=== PATIENT | male | born 1995 | race Caucasian/White ===

== ENCOUNTER 2024-05-27 23:40 | Emergency (ER) | payer MEDICAID, SELFPAY ==
[2024-05-27 23:40] VITALS: BMI 39.9
[2024-05-28 00:06] VITALS: BP 150/88; PULSE 88; RESP 20; TEMP 36.9; O2SAT 95
--- NOTE | 2024-05-28 04:48 | EDNOTE_ITS ---
ED Dizzyness RME/HPI General Chief Complaint: Dizziness Stated Complaint: EPISODE OF FEELING DIZZY 30 MINUTES AGO Time Seen by Provider: 05/28/24 00:42 Arrival date/time: 05/27/24 23:40 29M with history of anxiety, depression, and panic attacks presents to ED with 5 minutes of heart palps, dizziness, and sweating about 30 minutes ago. Patient dose of Zoloft was recently lowered. Patient no longer has symptoms. Limitations: no limitations Related Data Previous Rx's ?Medication ?Instructions ?Recorded cephalexin 500 mg capsule 500 mg PO Q12H #20 caps 07/21 doxycycline hyclate 100 mg capsule 100 mg PO BID #14 c aps 10/04/21 amoxicillin 875 mg-potassium 1 tab PO BID #14 tabs 12/22 clavulanate 125 mg tablet fexofenadine 60 mg-pseudoephedrine 1 tab PO Q12H PRN n arthur congestion 03/11/22 ER 120 mg tablet,ext.release,12 hr #20 tabs (Laurie-D 12 Hour) Allergies Allergy/AdvReac Type Severity Reaction Status Date / Time No Known Allergies Allergy Verified 04/16/23 18:41 Review of Systems Review of Systems Systems Reviewed: All systems reviewed, normal except as documented Constitutional Constitutional: Reports system reviewed and no additional complaints, except as documented, Denies fever(s) and Denies headache(s) ENT Ears, Nose, Mouth, and Throat: Reports as per HPI, Denies disequilibrium, Denies headache(s) and Reports vertigo Cardiovascular Cardiovascular: Reports system reviewed and no additional complaints, except as documented, Reports as per HPI, Denies chest pain, Reports diaphoresis, Denies dyspnea and Reports palpitations Respiratory Respiratory: Reports system reviewed and no additional complaints, except as documented, Denies cough and Denies dyspnea Gastrointestinal Gastrointestinal: Reports system reviewed and no additional complaints, except as documented, Denies abdominal pain, Denies nausea and Denies vomiting Neurologic Neurologic: Reports system reviewed and no additional complaints, except as documented, Denies confusion, Denies disequilibrium, Denies headache(s) and Reports vertigo Psychiatric Psychiatric: Denies confusion Endocrine Endocrine: Reports palpitations Past Medical History Social History SMOKING STATUS: Never smoker ED Exam General Limitations: Present no limitations General appearance: Present alert and in no apparent distress Head Head exam: Present atraumatic Eye Eye exam: Present normal appearance, PERRL and EOMI ENT ENT exam: Present normal exam, normal oropharynx and mucous membranes moist Neck Neck exam: Present normal inspection, full ROM and trachea midline Chest Chest inspection: Present normal inspection and symmetric chest wall rise Respiratory Respiratory exam: Present normal lung sounds bilaterally Cardiovascular Cardiovascular exam: Present regular rate, normal rhythm and normal heart sounds Abdominal Exam Abdominal exam: Present soft and normal bowel sounds Extremities Exam Extremities exam: Present normal inspection and full ROM Back Exam Back exam: Present normal inspection and full ROM Neurological Exam Neurological exam: Present alert, oriented X3 and CN II-XII intact Psychiatric Psychiatric exam: Present normal affect and normal mood Skin Skin exam: Present warm, dry, intact and normal color Course Quality Measures none Orders Category Date Time Status EKG (ED ONLY) *Do not use* NOW Care 05/27/24 23:48 Completed EKG (ED Only) Stat Exams 05/27/24 23:48 Ordered Vital Signs Vital signs: Vital Signs Temperature 98.4 F 05/28/24 00:06 Pulse Rate 88 05/28/24 00:06 Respiratory Rate 20 05/28/24 00:06 Blood Pressure 150/88 H 05/28/24 00:06 Pulse Oximetry (%) 95 05/28/24 00:06 Oxygen Delivery Method Room Air 05/28/24 00:06 O2 at 95% on RA and WNLs Dizziness MDM Narrative MDM Narrative:: 29M with history of anxiety, depression, and panic attacks presents to ED with 5 minutes of heart palps, dizziness, and sweating about 30 minutes ago. Patient dose of Zoloft was recently lowered. Patient no longer has symptoms. Physical exam reveals clear lungs. Normal pupil response and EOM. RRR. Patient is afebrile, calm, and alert. EKG is NSR. 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 Patient data External records reviewed:: [facility] previous records Clinical information provided by:: patient Social determinants that could affect healthcare access:: mental health Patient has the following chronic illnesses:: anxiety, depression, and panic attacks How is presenting disease/condition affected by chronic disease/condition?: caused by Evaluation data The following diagnostics were reviewed and interpreted by me:: EKG tracing(s) Lab and/or radiology exams considered but not ordered:: ordered Interpretation Summary: above Medications / Prescriptions Medications or Prescriptions considered but not ordered:: not ordered Medication administrations:: n/a Consultations Consultation(s) initiated? (list below): No Diagnosis Dizziness Differential Diagnosis: adverse reaction to drug, benign paroxysmal positional vertigo, orthostatic hypotension, vertebral basilar insufficiency, cerebrovascular accident, acute vestibular neuronitis, transient cerebral ischemia and other (panic disorder) Most likely diagnosis given after review of the tests above:: panic disorder Admission Indicated Admission indicated?: not indicated Admission Request Was there a request for admission?: No Disposition Plan Disposition Plan: Discharge Discharge Attestation Discharge Attestation: The patient and all family members were given an opportunity to ask questions and understood the discharge instructions. Discharge instructions specifically effects, indications for sooner follow up or return to the emergency department, and the expected course of current diagnosis. Patient condition: Stable Discharge Plan Plan Patient Disposition: HOME (Self Care) Disposition Comment: Stable Prescriptions/Referrals Prescriptions/Med Rec: No Action doxycycline hyclate 100 mg capsule 100 mg PO BID Qty: 14 0RF cephalexin 500 mg capsule 500 mg PO Q12H Qty: 20 0RF amoxicillin-pot clavulanate 875-125 mg tablet 1 tab PO BID Qty: 14 0RF fexofenadine-pseudoephedrine [Laurie-D 12 Hour] 60-120 mg tablet extended release 12 hr 1 tab PO Q12H PRN (Reason: nasal congestion) Qty: 20 0RF Problem List Clinical Impression: Panic disorder Patient/Caregiver Discharge Instructions Education Materials: Panic Disorder Tx, Treating Panic Disorder with ..., ED Panic Attack Additional Instructions: Please follow-up with PCP within 24-48 hours and return immediately if symptoms worsen. Ask psychiatrist if you need to go back to original dose or change SSRI. Print Language: Sami Stand Alone Forms: Patient Portal Info Letter AISHWARYA/JAZLYN Supervising Physician AISHWARYA/JAZLYN Supervising Physician: Dr. Maravilla
== END 2024-05-28 01:35 | disposition home or self-care (01) ==
LOC: SERX 05-28 01:50
PROVIDERS: Emergency Provider Emergency Medicine; PCP Family Medicine
DX: F41.0 Panic disorder [episodic paroxysmal anxiety] (principal)
CPT/HCPCS: 93005; 99283

== ENCOUNTER 2024-07-19 01:01 | Observation (INO) | payer MEDICAID, SELFPAY ==
[2024-07-19] VITALS (12 sets, daily range): BP systolic 103–138; BP diastolic 69–92; PULSE 96–128; RESP 18–22; TEMP 36.6–39.4; O2SAT 95–97; BMI 39.5; BMI 39.1
--- NOTE | 2024-07-19 01:32 | XR_ITS ---
Examination: PA chest single view TECHNIQUE: Upright PA chest single view Date and time: July 19, 2024 0147 hours INDICATIONS: Fever abdominal pain diarrhea beginning yesterday FINDINGS: Normal heart size. No pneumonia or pulmonary edema The osseous structures are intact IMPRESSION: No active disease.
--- NOTE | 2024-07-19 01:32 | EKG_ITS ---
[facility] Test Date: 2024-07-19 Pat Name: DIMAS BEARDEN Department: Room: - Gender: Male Home Care Liaison: : 1995 Requested By: Artie Noble Order Number: [id number] Reading MD: Artie Noble Measurements Intervals [place] Rate: 122 P: 57 CO: 150 QRS: 64 QRSD: 100 T: 13 QT: 290 QTc: 413 Interpretive Statements SINUS TACHYCARDIA ABNORMAL RHYTHM ECG Compared to ECG 05/28/2024 00:07:38 Sinus rhythm no longer present Incomplete right bundle-branch block no longer present /store/S0/[id number]/ecg/[id number].pdf
--- NOTE | 2024-07-19 01:39 | PD.EDRME ---
Rapid Medical Screening Exam [facility] Arrival date/time: 07/19/24 01:01 Chief Complaint: Fever Vital signs: Vital Signs Temperature 101.4 F H 07/19/24 01:24 Pulse Rate 128 H 07/19/24 01:24 Respiratory Rate 20 07/19/24 01:24 Blood Pressure 121/78 07/19/24 01:24 Pulse Oximetry (%) 95 07/19/24 01:24 Oxygen Delivery Method Room Air 07/19/24 01:24 [facility] Narrative: Fever, abdominal pain, diarrhea since yesterday
[2024-07-19] MEDS: IBUPROFEN TAB 400 MG TABLET 800 MG PO (01:58)
[2024-07-19 02:02] LABS: Lactate (Lactic Acid) 1.3 mMol/L (0.4-2.0)
[2024-07-19 02:07] LABS: Basophils % (Auto) 0 % (0-2.5); Eosinophils % (Auto) 1 % (0-10); Hematocrit 41.8 % (41.0-53.0); Hemoglobin 14.9 g/dL (13.5-16.0); Immature Granulocytes % (Auto) 0 % (0-0); Immature Granulocytes Auto 0.03 Thou/mm3 (0.00-0.00); Lymphocytes # (Auto) 0.7 Thou/mm3 (1.0-4.8); Lymphocytes % (Auto) 7 % (10-50); Mean Corpuscular HGB Conc 35.6 g/dl (31.0-37.0); Mean Corpuscular Hemoglobin 29.1 pg (25.0-35.0); Mean Corpuscular Volume 82 fL (80-100); Monocytes # (Auto) 0.6 Thou/mm3 (0.0-0.8); Monocytes % (Auto) 7 % (0-12); Neutrophils # (Auto) 7.5 Thou/mm3 (1.8-7.7); Neutrophils % (Auto) 85 % (37-80); Nucleated Red Blood Cell % 0 /100 WBC (0); Platelet Count 281 Thou/mm3 (140-440); RDW Standard Deviation 38.1 fL (35.1-43.9); Red Blood Count 5.12 Miln/mm3 (4.50-5.90); White Blood Count 8.9 Thou/mm3 (3.8-10.6)
--- NOTE | 2024-07-19 02:18 | XR_ITS ---
Examination: CT abdomen with intravenous contrast CT pelvis with intravenous contrast 2-D coronal reconstructions 2-D sagittal reconstructions Date and time of exam:July 19, 2024 0346 hours INDICATIONS: Fever abdominal pain and body aches today. CTDI: vol (mGy) 14 DLP: (mGycm) 955 Technique: Multiple axial sections of the abdomen and pelvis have been obtained. 64 slice high-resolution scanner used. 3 mm axial sections have been obtained, post intravenous injection 60 cc Isovue 370 2-D sagittal, coronal reconstructions obtained. Low dose protocols were performed. One or more of the following dose reduction techniques were used; automated exposure control, adjustment of the mA and/or KV according to patient size, use of iterative reconstruction technique. Findings: No focal liver or splenic lesions No gallstones No pancreatic or adrenal mass No renal or ureteral calculi, no hydronephrosis No periappendiceal inflammatory change Small focus of fat inflammation adjacent to the descending colon Mild thickening of the urinary bladder wall No prostatomegaly Osseous structures intact IMPRESSION: Epiploic appendagitis adjacent to the descending colon
[2024-07-19 02:31] LABS: Alanine Aminotransferase 34 U/L (10-49); Albumin, Serum 4.8 gm/dL (3.5-5.0); Albumin/Globulin Ratio 1.5 (1.2-2.2); Alkaline Phosphatase 156 U/L (46-116); Anion Gap 9 (7-16); Aspartate Amino Transferase 26 U/L (0-34); BUN/Creatinine Ratio 9 Ratio (12-20); Bilirubin,Total 0.4 mg/dL (0.3-1.2); Blood Urea Nitrogen 10 mg/dL (9-23); Carbon Dioxide 24.4 mMol/L (20.0-31.0); Chloride 106 mMol/L (98-107); Creatinine (Component) 1.1 mg/dL (0.6-1.3); Estimated Creatinine Clearance 129.9 mL/min (>60); Globulin 3.1 gm/dL (2.3-3.5); Glucose 121 mg/dL (74-106); Lipase 43 U/L (12-53); Osmolality,Calculated 277 (275-295); Potassium 4.1 mMol/L (3.4-5.1); Sodium 139 mMol/L (136-145); Total Protein 7.9 gm/dL (5.7-8.2); eGFR > 60 See Note
[2024-07-19] MEDS: SODIUM CHLORIDE 0.9% 1000 ML 2,121 ML 2121 ML IV (02:42)
[2024-07-19 02:51] LABS: Amorphous Crystals,Urine Present (Absent); Bilirubin,Urine Negative (Negative); Blood,Urine 1+ (Negative); Clarity,Urine Turbid (Clear/Hazy); Collection Type, Urine Clean Catch; Color,Urine Yellow (Lt Yel-Yel); Glucose, Urine Negative (Negative); Ketones,Urine Trace (Negative); Leukocyte Esterase,Urine Positive (Negative); Nitrite,Urine Negative (Negative); Protein,Urine Trace (Neg - Trace); RBC,Urine 6 /hpf (0-3); Specific Gravity,Urine 1.033 (1.001-1.035); Squamous Epithelial Cell,Urine < 1 /hpf (0-5); WBC,Urine 2 /hpf (0-5)
[2024-07-19] MEDS: cefTRIAXone/D5w 1gm IV premix 1 GM/50 ML BAG IV (04:16)
--- NOTE | 2024-07-19 04:51 | PRELIM_ITS ---
CT scan of the abdomen and pelvis with intravenous contrast (axial sections with sagittal and coronal reformats) July 19, 2024 at 0346 hours Clinical History: Fever, abdominal pain. Comparison: No prior study is available for comparison. Findings: The lung bases are clear. The liver, gallbladder, pancreas, spleen, kidneys and adrenals are unremarkable. No evidence of bowel obstruction. No evidence of appendicitis. There is no mesenteric or retroperitoneal adenopathy. Mild thickening of the anterior urinary bladder wall. There is no free fluid or free air. The osseous structures are unremarkable. Mild thickening of the colonic wall. Fluid stools throughout the colon. Fat stranding anterior to the distal descending colon. Impression: Possible mild colitis. Epiploic appendagitis anterior to the distal descending colon. Mild thickening of the anterior urinary bladder wall, further evaluation to exclude urinary bladder cancer should be considered. Report Electronically Signed By: Memo Farmer 07/19/2024 4:50:48 AM [EST]
--- NOTE | 2024-07-19 06:24 | PD.EDADULT ---
ED General RME/HPI General Chief complaint: Fever Stated complaint: FEVER,BODYACHES Time Seen by Provider: 07/19/24 02:30 Arrival date/time: 07/19/24 01:01 RME / HPI RME / HPI narrative: This patient is a 29-year-old male with past medical history of anxiety presented to the ED on 07/19/2024 with chief complaint of fever, loose stools and abdominal pain for last 2 days. He reported that his pain started 2 days ago when he noticed that he has pain diffusely in the abdomen more on the right and left anterior part of the abdomen associated with nausea and loose stools. Patient reported more than 5 bowel movements in a day from last 2 days without noticing any blood and endorsed orange color stool. He also reported to have some burning and urgency during urination for last 2 days. He described his pain as colicky in nature 9 out of 10 more exacerbated with movement and only used to subside temporarily with Tylenol and ibuprofen which she was taking at home. He also has midepigastric pain colicky in nature associate with nausea and feels bloated. His fever was not breaking down at home despite taking Tylenol and ibuprofen and spiked to 101. He also endorsed lightheadedness and dizziness. Patient does have a significant family history of colon cancer and he himself had colonoscopy done in the past which showed hemorrhoids. He also has been passing a lot of flatus along with stool. He usually eats outside the home but last meal since his pain and symptoms started was at home cooked by his . He lives at home with his and does not work currently. Past medical history: Above PSH: Colonoscopy in the past showing hemorrhoids SH: Used to smoke weed in the past. Denies drinking alcohol. No history of illicit drug use FH: Colon cancer in father and grandfather Allergies: No known drug allergies Home medications: Prozac Differential diagnoses include sepsis likely related to viral GI infection, IBD, pancreatitis, peptic ulcer disease Vitals showed blood pressure 113/69 with tachycardia 128 and febrile 41.4 saturating well on room air. Patient met 2 out of 4 SIRS criteria and sepsis alert was initiated. Labs reviewed white count 8.9, hemoglobin 14.9, platelet count 281. Chemistry panel was unremarkable. Blood glucose 121. Lactic acid 1.3. Liver enzymes unremarkable. Lipase was negative. Procalcitonin 0.20. Urine was showing turbidity with blood 1+, RBC 6 + and amorphous crystals present. Chest x-ray showed no active disease. EKG showed sinus tachycardia with no acute ST-T changes. CT abdomen was significant for colitis pattern with thickening of colon wall and bladder wall. Epiploic appendagitis anterior to distal descending colon. Patient received IV Rocephin 1 g x 1, 2 L bolus of NS x 1 and ibuprofen 800 mg in the ED. Rectal examination was performed which showed negative guaiac test x 2. GI specialist, Dr. Hester was consulted who recommended if the patient is willing to stay he would need another colonoscopy to rule out inflammatory conditions of bowel and will need further workup and inpatient IV antibiotic with ciprofloxacin 400 mg every 12 hourly and Flagyl 500 mg Q8 hourly and would need colonoscopy. He was also started on IV hydration with normal saline at 75 cc/h. Patient was explained that he would need to be admitted for further evaluation and patient was agreeable to be further investigated. 7:43 Discussed case with hospitalist team regarding admission. Discussed patient's ED course, exam findings, labs and radiology results. Hospitalist team agreed to accept the patient for admission. MD complaint: Diffuse abdominal pain with loose stools and fever Onset (ago): day(s) (2) Location: back and abdomen Radiation: non-radiation Severity: severe Quality: aching Consistency: intermittent Relieving factors: none Exacerbating factors: movement Associated symptoms: fever/chills, malaise, nausea/vomiting and shortness of breath Related Data Home Medications ?Medication ?Instructions ?Recorded ?Confirmed fluoxetine 10 mg tablet 20 mg PO DAILY 07/19/24 07/19/24 Previous Rx's ?Medication ?Instructions ?Recorded cephalexin 500 mg capsule 500 mg PO Q12H #20 caps 10/04/21 Held on 07/19/24. Instructions: Order Change doxycycline hyclate 100 mg capsule 100 mg PO BID #14 caps 10/04/21 Held on 07/19/24. Instructions: Order Change amoxicillin 875 mg-potassium 1 tab PO BID #14 tabs 03/11/22 clavulanate 125 mg tablet Held on 07/19/24. Instructions: Order Change Allergies Allergy/AdvReac Type Severity Reaction Status Date / Time No Known Allergies Allergy Verified 07/19/24 01:03 Review of Systems Review of Systems Systems Reviewed: All systems reviewed, normal except as documented Past Medical History Past Medical History PSYCHO/SOCIAL: Positive Anxiety ED Exam Narrative Physical exam: GENERAL APPEARANCE: AxOx4, generally well-appearing male in mild distress due to pain. sat well on RA HEENT: NC, AT. dry mucus membrane . EOMI, clear conjunctiva, oropharynx clear. NECK: Supple without lymphadenopathy. No stiffness or restricted ROM. HEART: sinus tacy with regular rhythm, normal S1/S2, no m/r/g LUNGS: CTAB, moving air well. No crackles or wheezes are heard. ABDOMEN: Soft,Epigastric tender and Rt flank tenderness, mildly distended with hyperactive bowel sounds heard. BACK: Rt flank tenderness EXTREMITIES: Without cyanosis, clubbing or edema. NEUROLOGICAL: Grossly nonfocal. Alert and oriented, moving all 4 extremities. CN not formally tested but appear grossly intact. Observed to ambulate with normal gait. Skin: Warm and dry without any rash. Psych: appropriate mood and affect Course Course Course Narrative: This patient is a 29-year-old male with past medical history of anxiety presented to the ED on 07/19/2024 with chief complaint of fever and abdominal pain for last 2 days. He reported that his pain started 2 days ago when he noticed that he has pain diffusely in the abdomen more on the right and left anterior part of the abdomen associated with nausea and loose stools. Patient reported more than 5 bowel movements in a day from last 2 days without noticing any blood and endorsed orange color stool. He also reported to have some burning and urgency during urination for last 2 days. He described his pain as colicky in nature 9 out of 10 more exacerbated with movement and only used to subside temporarily with Tylenol and ibuprofen which she was taking at home. He also has midepigastric pain colicky in nature associate with nausea and feels bloated. His fever was not breaking down at home despite taking Tylenol and ibuprofen and spiked to 101. He also endorsed lightheadedness and dizziness. Patient does have a significant family history of colon cancer and he himself had colonoscopy done in the past which showed hemorrhoids. He also has been passing a lot of flatus along with stool. He usually eats outside the home but last meal since his pain and symptoms started was at home cooked by his . He lives at home with his and does not work currently. Differential diagnoses include sepsis likely related to viral GI infection, IBD, pancreatitis, peptic ulcer disease Vitals showed blood pressure 113/69 with tachycardia 128 and febrile 41.4 saturating well on room air. Patient met 2 out of 4 SIRS criteria and sepsis alert was initiated. Labs reviewed white count 8.9, hemoglobin 14.9, platelet count 281. Chemistry panel was unremarkable. Blood glucose 121. Lactic acid 1.3. Liver enzymes unremarkable. Lipase was negative. Procalcitonin 0.20. Urine was showing turbidity with blood 1+, RBC 6 + and amorphous crystals present. Chest x-ray showed no active disease. EKG showed sinus tachycardia with no acute ST-T changes. CT abdomen was significant for colitis pattern with thickening of colon wall and bladder wall. Epiploic appendagitis anterior to distal descending colon. Patient received IV Rocephin 1 g x 1, 2 L bolus of NS x 1 and ibuprofen 800 mg in the ED. Rectal examination was performed which showed negative guaiac test x 2. GI specialist, Dr. Hester was consulted who recommended if the patient is willing to stay he would need another colonoscopy to rule out inflammatory conditions of bowel and will need further workup and inpatient IV antibiotic with ciprofloxacin 400 mg every 12 hourly and Flagyl 500 mg Q8 hourly and would need colonoscopy. He was also started on IV hydration with normal saline at 75 cc/h. Patient was explained that he would need to be admitted for further evaluation and patient was agreeable to be further investigated. 7:43 Discussed case with hospitalist team regarding admission. Discussed patient's ED course, exam findings, labs and radiology results. Hospitalist team agreed to accept the patient for admission. Quality Measures none Orders Category Date Time Status Patient Condition Routine Admission 07/19/24 08:[address] in Observation Status Routine Admission 07/19/24 08:13 Active Bedside COVID-19 Antigen Test NOW Care 07/19/24 01:32 Active Bedside Influenza A&B Antigen Test NOW Care 07/19/24 01:33 Completed COVID-19 Screening Questionnaire NOW Care 07/19/24 07:[address] Screening NOW Care 07/19/24 02:18 Active Decision to Admit X1 Care 07/19/24 07:52 Completed EKG (ED ONLY) *Do not use* NOW Care 07/19/24 01:33 Completed Flu & Pneumonia Vaccine Screen ONCE Care 07/19/24 08:14 Active Insert [Insert IV] STAT Care 07/19/24 02:38 Active Notify provider NEEDED Care 07/19/24 08:09 Active Obtain weight daily Care 07/19/24 08:10 Active Occult Blood,Stool (Nursing) NOW Care 07/19/24 06:47 Active Consult to Gastroenterology Stat Cons 07/19/24 07:13 Ordered Diet Clear Liquid Diet 07/19/[address] abdomen pelvis w con Stat Exams 07/19/24 02:18 Completed CXR1 [XR chest 1V] Stat Exams 07/19/24 01:32 Completed EKG (ED Only) Stat Exams 07/19/24 01:32 Draft Basic Metabolic Panel AM DRAW Lab 07/20/24 05:00 Ordered Basic Metabolic Panel AM DRAW Lab 07/21/24 05:00 Ordered Basic Metabolic Panel AM DRAW Lab 07/22/24 05:00 Ordered Blood Culture (Lab) Stat Lab 07/19/24 01:50 Received CBC AM DRAW Lab 07/20/24 05:00 Ordered CBC AM DRAW Lab 07/21/24 05:00 Ordered CBC AM DRAW Lab 07/22/24 05:00 Ordered CBC Stat Lab 07/19/24 01:50 Completed CMP [Comprehensive Metabolic Panel] Stat Lab 07/19/24 01:50 Completed Calprotectin, Stool* Routine Lab 07/19/24 07:44 Received Clostridium Difficile PCR Stat Lab 07/19/24 07:44 Completed Giardia Antigen, EIA, Stool* Stat Lab 07/19/24 07:44 Received Helicobacter pylori Ag, Stool* Stat Lab 07/19/24 07:44 Received Lactate (Lactic Acid) Stat Lab 07/19/24 01:50 Completed Lipase Stat Lab 07/19/24 01:50 Completed Magnesium AM DRAW Lab 07/20/24 05:00 Ordered Norovirus, EIA (Stool)* Stat Lab 07/19/24 07:44 Received Phosphorous AM DRAW Lab 07/20/24 05:00 Ordered Procalcitonin Stat Lab 07/19/24 01:50 Completed Stool Culture Stat Lab 07/19/24 07:44 Received Stool for WBCs Stat Lab 07/19/24 07:44 Completed UA [Urinalysis] Stat Lab 07/19/24 02:15 Completed Urine Culture Stat Lab 07/19/24 02:15 Received Acetaminophen Tab [Tylenol Tab] Med 07/19/24 08:09 Active 650 mg PO Q6H PRN CIPROFLOXACIN/D5w 400 MG IVPB [Cipro Ivpb] Med 07/19/24 07:35 Discontinued 400 mg in 200 ml IV X1 HYDROcodone*/APAP 5/325 [[place] 5/325] Med 07/19/24 08:09 Active 1 tab PO Q4HR PRN HYDROcodone/APAP 10/325 [[place] 10/325] Med 07/19/24 08:14 Active 1 tab PO Q4HR PRN Heparin Inj Med 07/19/24 14:00 Active 5,000 unit SC Q8HR Ibuprofen Tab [Motrin Tab] Med 07/19/24 01:32 Discontinued 800 mg PO X1 ONE NA BRIDGES/NAHCO3/JEFF/PEG (Golytely) [Golytely] Med 07/19/24 07:52 Discontinued 4,000 ml PO X1 ONE Ondansetron Inj [Zofran Inj] Med 07/19/24 08:09 Active 4 mg IV Q6H PRN Ringers Lactated 1000 ml [Lactated Ringers] 1,000 ml Med 07/19/24 08:15 Active IV 75 mls/hr Sodium Chloride 0.9% 1000 ml [Ns] 1,000 ml Med 07/19/24 07:13 Active IV 75 mls/hr Sodium Chloride 0.9% 1000 ml [Ns] 2,121 ml Med 07/19/24 01:38 Discontinued IV 2,121 mls/hr cefTRIAXone/D5w 1gm IV premix [Rocephin/D5w 1gm IV Med 07/19/24 01:38 Discontinued premix] 1 gm in 50 ml IV X1 metroNIDAZOLE/NS 500 MG IVPB [Flagyl 500 mg IV] Med 07/19/24 07:35 Discontinued 500 mg in 100 ml IV X1 Code Status Routine Oth 07/19/24 08:09 Ordered Vital Signs Vital signs: Vital Signs Temperature 101.4 F H 07/19/24 01:24 Pulse Rate 128 H 07/19/24 01:24 Respiratory Rate 20 07/19/24 01:24 Blood Pressure 121/78 07/19/24 01:24 Pulse Oximetry (%) 95 07/19/24 01:24 Oxygen Delivery Method Room Air 07/19/24 01:24 Discharge Plan Plan Patient Disposition: Admit Acute Care w/in Hospital Problem List Clinical Impression: Fever, Right flank pain, Diarrhea MD Attestation Attestation I, Aung Benoit MD, have reviewed the history, exam, and assessment of the patient. I have evaluated the patient independently and agree with the plan of care documented by [ ]. All diagnostic studies were reviewed and discussed. I confirm the diagnosis as documented by the Resident. I was present during the Medical Decision Making for this patient. The patient's plan of care was created between myself and the Resident and consistent with our discussion of the patient's case. Should be no I went and saw the patient he is fluid overloaded and clearly needs dialysis. Patient tolerated oxygen nitro paste blood pressure was controlled adequately and fish roe technician agreed to provide dialysis and hospitalist team will follow patient up after dialysis and decide if any further workup is needed since he has significant fluid on his chest. MDM Narrative MDM hospital course (for use when minimal MDM required): This patient is a 29-year-old male with past medical history of anxiety presented to the ED on 07/19/2024 with chief complaint of fever and abdominal pain for last 2 days. He reported that his pain started 2 days ago when he noticed that he has pain diffusely in the abdomen more on the right and left anterior part of the abdomen associated with nausea and loose stools. Patient reported more than 5 bowel movements in a day from last 2 days without noticing any blood and endorsed orange color stool. He also reported to have some burning and urgency during urination for last 2 days. He described his pain as colicky in nature 9 out of 10 more exacerbated with movement and only used to subside temporarily with Tylenol and ibuprofen which she was taking at home. He also has midepigastric pain colicky in nature associate with nausea and feels bloated. His fever was not breaking down at home despite taking Tylenol and ibuprofen and spiked to 101. He also endorsed lightheadedness and dizziness. Patient does have a significant family history of colon cancer and he himself had colonoscopy done in the past which showed hemorrhoids. He also has been passing a lot of flatus along with stool. He usually eats outside the home but last meal since his pain and symptoms started was at home cooked by his . He lives at home with his and does not work currently. Differential diagnoses include sepsis likely related to viral GI infection, IBD, pancreatitis, peptic ulcer disease Vitals showed blood pressure 113/69 with tachycardia 128 and febrile 41.4 saturating well on room air. Patient met 2 out of 4 SIRS criteria and sepsis alert was initiated. Labs reviewed white count 8.9, hemoglobin 14.9, platelet count 281. Chemistry panel was unremarkable. Blood glucose 121. Lactic acid 1.3. Liver enzymes unremarkable. Lipase was negative. Procalcitonin 0.20. Urine was showing turbidity with blood 1+, RBC 6 + and amorphous crystals present. Chest x-ray showed no active disease. EKG showed sinus tachycardia with no acute ST-T changes. CT abdomen was significant for colitis pattern with thickening of colon wall and bladder wall. Epiploic appendagitis anterior to distal descending colon. Patient received IV Rocephin 1 g x 1, 2 L bolus of NS x 1 and ibuprofen 800 mg in the ED. Rectal examination was performed which showed negative guaiac test x 2. GI specialist, Dr. Hester was consulted who recommended if the patient is willing to stay he would need another colonoscopy to rule out inflammatory conditions of bowel and will need further workup and inpatient IV antibiotic with ciprofloxacin 400 mg every 12 hourly and Flagyl 500 mg Q8 hourly and would need colonoscopy. He was also started on IV hydration with normal saline at 75 cc/h. Patient was explained that he would need to be admitted for further evaluation and patient was agreeable to be further investigated. 7:43 Discussed case with hospitalist team regarding admission. Discussed patient's ED course, exam findings, labs and radiology results. Hospitalist team agreed to accept the patient for admission. Medication Administration(s) Medication Administration History Acetaminophen (Acetaminophen 325 Mg Tablet) 650 mg PO Q6H PRN PRN Reason: Pain 1-3 and/or Fever >100.1 Stop: 08/18/24 08:08 Last Admin: 07/19/24 15:27 Dose: 650 mg Documented By: Admin: 07/19/24 08:41 Dose: 650 mg Documented By: MERVIN Hydrocodone Bitart/Acetaminophen (Hydrocodone/Apap 5/325 Tablet) 1 tab PO Q4HR PRN PRN Reason: PAIN SCALE 4-6 (Moderate Stop: 07/24/24 08:08 Hydrocodone Bitart/Acetaminophen (Hydrocodone/Apap 10/325 Tab) 1 tab PO Q4HR PRN PRN Reason: PAIN SCALE 7-10 (Severe Stop: 07/24/24 08:13 Heparin Sodium (Porcine) (Heparin Sod Inj 5000 Unit/Ml Vial) 5,000 unit SC Q8HR G[facility]O Stop: 08/02/24 13:59 Last Admin: 07/19/24 14:37 Dose: 5,000 unit Documented By: MR Co-signed By: ECTOR Sodium Chloride (Ns) 1,000 mls @ 75 mls/hr IV .[id number] [facility] Stop: 08/18/24 07:12 Last Admin: 07/19/24 08:33 Dose: Not Given Documented By: MERVIN Non-Admin Reason: Cancelled by Provider Lactated Ringer's (Lactated Ringers) 1,000 mls @ 75 mls/hr IV .[id number] [facility] Stop: 07/19/24 21:34 Last Admin: 07/19/24 08:35 Dose: 75 mls/hr Documented By: MERVIN Ciprofloxacin/Dextrose (Cipro Ivpb) 400 mg in 200 mls @ 200 mls/hr IV Q12HR [facility] Stop: 07/26/24 20:59 Metronidazole (Flagyl 500 Mg Iv) 500 mg in 100 mls @ 200 mls/hr IV Q6H [facility] Stop: 07/26/24 13:59 Last Admin: 07/19/24 14:37 Dose: 200 mls/hr Documented By: MR Ondansetron HCl (Ondansetron Inj 2 Mg/Ml Inj 2 Ml) 4 mg IV Q6H PRN; Protocol PRN Reason: NAUSEA OR VOMITING Stop: 08/18/24 08:08 Discontinued Medications Ceftriaxone Sodium/Dextrose (Rocephin/D5w 1gm Iv Premix) 1 gm in 50 mls @ 100 mls/hr IV X1 ONE Stop: 07/19/24 02:07 Last Infusion: 07/19/24 05:08 Dose: Infused Documented By: Admin: 07/19/24 04:16 Dose: 100 mls/hr Documented By: EDDIE Sodium Chloride (Ns) 2,121 mls @ 2,121 mls/hr 30 ml/kg infuse over 60 min (2121 ml) IV .Q1H ONE Stop: 07/19/24 02:37 Last Infusion: 07/19/24 03:42 Dose: Infused Documented By: Admin: 07/19/24 02:42 Dose: 2,121 mls/hr Documented By: EDDIE Ciprofloxacin/Dextrose (Cipro Ivpb) 400 mg in 200 mls @ 200 mls/hr IV X1 ONE Stop: 07/19/24 08:34 Last Infusion: 07/19/24 09:35 Dose: Infused Documented By: Admin: 07/19/24 08:35 Dose: 200 mls/hr Documented By: TM Metronidazole (Flagyl 500 Mg Iv) 500 mg in 100 mls @ 100 mls/hr IV X1 ONE Stop: 07/19/24 08:34 Last Infusion: 07/19/24 09:36 Dose: Infused Documented By: Admin: 07/19/24 08:36 Dose: 100 mls/hr Documented By: TM Ibuprofen (Ibuprofen Tab 400 Mg Tablet) 800 mg PO X1 ONE Stop: 07/19/24 01:33 Last Admin: 07/19/24 01:58 Dose: 800 mg Documented By: CVL Polyethylene Glycol/Electrolytes ([place]/Nahco3/Jeff/Peg (Golytely) 4,000 Ml Btl) 4,000 ml PO X1 ONE Stop: 07/19/24 07:53 Last Admin: 07/19/24 09:54 Dose: 4,000 ml Documented By: TM Comments: MED NOT AVAILABLE UNTIL NOW Diagnosis Diagnoses ruled out and/or further discussions: This patient is a 29-year-old male with past medical history of anxiety presented to the ED on 07/19/2024 with chief complaint of fever and abdominal pain for last 2 days. He reported that his pain started 2 days ago when he noticed that he has pain diffusely in the abdomen more on the right and left anterior part of the abdomen associated with nausea and loose stools. Patient reported more than 5 bowel movements in a day from last 2 days without noticing any blood and endorsed orange color stool. He also reported to have some burning and urgency during urination for last 2 days. He described his pain as colicky in nature 9 out of 10 more exacerbated with movement and only used to subside temporarily with Tylenol and ibuprofen which she was taking at home. He also has midepigastric pain colicky in nature associate with nausea and feels bloated. His fever was not breaking down at home despite taking Tylenol and ibuprofen and spiked to 101. He also endorsed lightheadedness and dizziness. Patient does have a significant family history of colon cancer and he himself had colonoscopy done in the past which showed hemorrhoids. He also has been passing a lot of flatus along with stool. He usually eats outside the home but last meal since his pain and symptoms started was at home cooked by his . He lives at home with his and does not work currently. Differential diagnoses include sepsis likely related to viral GI infection, IBD, pancreatitis, peptic ulcer disease Vitals showed blood pressure 113/69 with tachycardia 128 and febrile 41.4 saturating well on room air. Patient met 2 out of 4 SIRS criteria and sepsis alert was initiated. Labs reviewed white count 8.9, hemoglobin 14.9, platelet count 281. Chemistry panel was unremarkable. Blood glucose 121. Lactic acid 1.3. Liver enzymes unremarkable. Lipase was negative. Procalcitonin 0.20. Urine was showing turbidity with blood 1+, RBC 6 + and amorphous crystals present. Chest x-ray showed no active disease. EKG showed sinus tachycardia with no acute ST-T changes. CT abdomen was significant for colitis pattern with thickening of colon wall and bladder wall. Epiploic appendagitis anterior to distal descending colon. Patient received IV Rocephin 1 g x 1, 2 L bolus of NS x 1 and ibuprofen 800 mg in the ED. Rectal examination was performed which showed negative guaiac test x 2. GI specialist, Dr. Hester was consulted who recommended if the patient is willing to stay he would need another colonoscopy to rule out inflammatory conditions of bowel and will need further workup and inpatient IV antibiotic with ciprofloxacin 400 mg every 12 hourly and Flagyl 500 mg Q8 hourly and would need colonoscopy. He was also started on IV hydration with normal saline at 75 cc/h. Patient was explained that he would need to be admitted for further evaluation and patient was agreeable to be further investigated. 7:43 Discussed case with hospitalist team regarding admission. Discussed patient's ED course, exam findings, labs and radiology results. Hospitalist team agreed to accept the patient for admission.
--- NOTE | 2024-07-19 08:05 | PC.NURSE ---
Pt ambulatory w/steady gait to BR, cont of diarrhea. Stool sample collected and sent to lab. Denies any pain at this time. Call interiano in reach, will cont w/POC.
--- NOTE | 2024-07-19 08:16 | ESHP_ITS ---
<Statement entered by Tiffanie Mendez MD - 07/29/24 14:58> I reviewed above note and agree with findings and plans. I have also personally examined the patient with medicine team and went over assessment and plan with medical team including internal audit manager and resident physician. Documentation for date of: 07/19/24 HPI History of Present Illness Chief complaint: Abdominal Pain/Diarrhea History of present illness: 29-year-old male with past medical history of anxiety on Prozac presented to the ED on 07/19 with abdominal pain, fevers and diarrhea for 1 day. Patient states that he started experiencing abdominal discomfort sometime around 07/18 which quickly progressed at night with several episodes of diarrhea. Patient denies any changes to diet, travel or any sick contacts but states that his bowel movements have been orange in color. Patient denies any hematemesis, melena or hematochezia during these episodes. Patient has significant family history of colorectal cancer in his father and grandfather; however, 1 year ago completed a colonoscopy at [facility] which was only positive for internal hemorrhoids. 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 In the ED, patient presented normotensive, tachycardic 128, RR of 20, febrile 101.4F but saturating 95 on room air. Pertinent lab findings included WBC of 8.9, Hgb of 14.9, Cr 1.1, BUN 10, lactic acid 1.3, urinalysis was negative for infection. Chest X-ray showed no active disease, EKG showed sinus tachycardia without ST changes, CT Abd/P showed Epiploic appendagitis adjacent to the descending colon, mild colitis and mild thickening of the anterior urinary bladder wall, Patient will be admittied for GI consultation for colitis with colonoscopy and workup for IBS. Exam Vital Signs Temp Pulse Resp BP Pulse Ox O2 Del Method 102.9 F H 119 H 20 122/85 H 95 Room Air 07/19/24 08:14 07/19/24 08:14 07/19/24 08:14 07/19/24 08:14 07/19/24 08:14 07/19/24 08:14 Narrative Exam Physical Exam: GENERAL: Awake, answering questions appropriately, appears stated age, obese HEENT: NC/AT. Moist mucosa. PERRLA/EOMI. CARDIO: Heart RRR, no obvious murmurs, no JVD. PULM: No coughing or visible SOB. Lungs CTA B/L. GI: Abdomen soft, obese, tender to palpation diffusely, no rebound/guarding noted. Borborygmi apparent SKIN/MSK/EXT: No wounds/discoloration/rashes/edema/amputations noted. +Pedal pulses present B/L. NEURO: Oriented x3, Moves extremities x4, no focal neurological deficits Results: Labs 07/19/24 01:50 07/19/24 01:50 Labs: Short CBC 07/19/24 Range/Units 01:50 WBC 8.9 (3.8-10.6) Thou/mm3 Hgb 14.9 (13.5-16.0) g/dL Hct 41.8 (41.0-53.0) % Plt Count 281 (140-440) Thou/mm3 BMP 07/19/24 01:50 Sodium 139 Potassium 4.1 Chloride 106 Carbon Dioxide 24.4 BUN 10 Creatinine 1.1 Glucose 121 H Calcium 9.0 Liver Function 07/19/24 Range/Units 01:50 Total Bilirubin 0.4 (0.3-1.2) mg/dL AST 26 (0-34) U/L ALT 34 (10-49) U/L Alkaline Phosphatase 156 H (46-116) U/L Albumin 4.8 (3.5-5.0) gm/dL Urine 07/19/24 Range/Units 02:15 Urine Color Yellow (Lt Yel-Yel) Urine Clarity Turbid A (Clear/Hazy) Urine pH 6.0 (5.0-7.0) Ur Specific [place] 1.033 (1.001-1.035) Urine Protein Trace (Neg - Trace) Urine Glucose (UA) Negative (Negative) Quality Measures Quality Measures none Medications Home Medications and Allergies Allergies Allergy/AdvReac Type Severity Reaction Status Date / Time No Known Allergies Allergy Verified 07/19/24 01:03 Visit Medications Acetaminophen (Acetaminophen 325 Mg Tablet) 650 mg PO Q6H PRN PRN Reason: Pain 1-3 and/or Fever >100.1 Stop: 08/18/24 08:08 Hydrocodone Bitart/Acetaminophen (Hydrocodone/Apap 5/325 Tablet) 1 tab PO Q4HR PRN PRN Reason: PAIN SCALE 4-6 (Moderate Stop: 07/24/24 08:08 Hydrocodone Bitart/Acetaminophen (Hydrocodone/Apap 10/325 Tab) 1 tab PO Q4HR PRN PRN Reason: PAIN SCALE 7-10 (Severe Stop: 07/24/24 08:13 Heparin Sodium (Porcine) (Heparin Sod Inj 5000 Unit/Ml Vial) 5,000 unit SC Q8HR GERARDO Stop: 08/02/24 13:59 Sodium Chloride (Ns) 1,000 mls @ 75 mls/hr IV .[id number] GERARDO Stop: 08/18/24 07:12 Ciprofloxacin/Dextrose (Cipro Ivpb) 400 mg in 200 mls @ 200 mls/hr IV X1 ONE Stop: 07/19/24 08:34 Metronidazole (Flagyl 500 Mg Iv) 500 mg in 100 mls @ 100 mls/hr IV X1 ONE Stop: 07/19/24 08:34 Lactated Ringer's (Lactated Ringers) 1,000 mls @ 75 mls/hr IV .[id number] GERARDO Stop: 07/19/24 21:34 Ondansetron HCl (Ondansetron Inj 2 Mg/Ml Inj 2 Ml) 4 mg IV Q6H PRN; Protocol PRN Reason: NAUSEA OR VOMITING Stop: 08/18/24 08:08 Discontinued Medications Ceftriaxone Sodium/Dextrose (Rocephin/D5w 1gm Iv Premix) 1 gm in 50 mls @ 100 mls/hr IV X1 ONE Stop: 07/19/24 02:07 Last Infusion: 07/19/24 05:08 Dose: Infused Sodium Chloride (Ns) 2,121 mls @ 2,121 mls/hr 30 ml/kg infuse over 60 min (2121 ml) IV .Q1H ONE Stop: 07/19/24 02:37 Last Infusion: 07/19/24 03:42 Dose: Infused Ibuprofen (Ibuprofen Tab 400 Mg Tablet) 800 mg PO X1 ONE Stop: 07/19/24 01:33 Last Admin: 07/19/24 01:58 Dose: 800 mg Polyethylene Glycol/Electrolytes ([place]/Nahco3/[place]/Peg (Golytely) 4,000 Ml Btl) 4,000 ml PO X1 ONE Stop: 07/19/24 07:53 Assessment & Plan Plan 29-year-old male with past medical history of anxiety on Prozac presented to the ED on 07/19 with abdominal pain, fevers and diarrhea for 1 day will be admittied for GI consultation for colitis with colonoscopy and workup for IBS. #Colitis, unspecified #Tachycardia #Febrile illness As stated above, patient presented with 1 day of fever, abdominal pain and diarrhea Patient has family history of colorectal cancer but colonoscopy 1 year ago was negative other than internal hemorrhoids On examination, patient has fever with tachycardia likely secondary to volume depletion from diarrhea Patient also has diffuse abdominal tenderness without signs of peritonitis such as tense abdomen, rebound tenderness or guarding and borborygmi is apparent EKG sinus tachycardia without ST changes, CT shows epiploic appendagitis and mild colitis with mild thickening of the urinary bladder wall In the ED, patient given ibuprofen, Tylenol and initially met sepsis criteria and was given IV fluid resuscitation with antibiotics ciprofloxacin and Flagyl GI was consulted and is asking for bowel prep for colonoscopy Plan: Continue IV antibiotics LR at 75 cc an hour for 1L GI consulted appreciate recommendations GoLytely initiated Clear liquid diet Stool studies ordered, follow-up on results #Epiploic appendagitis Incidentally found on CT abdomen pelvis Not likely clinically significant Plan: Patient on IV antibiotics as above for coverage #Anxiety Patient has longstanding history of anxiety started on Prozac, used to be on 40 mg about 6 months ago but has been tapering down and is currently on 20 mg daily Plan: Pending official med rec will restart home medication when appropriate Hospital Management: Lines: PIV Diet: Clear liquid Bowel: GoLytely GI prophylaxis: Not needed at this time DVT prophylaxis: Heparin subcu Dispo: Following on stool studies and GI recommendations for colonoscopy Code: Full Patient seen and assessed with attending Dr. Vanessa Archer, PGY-1 LPatient examined and case discussed with the team including attending physician. Note reviewed, I agree with the care plan as documented. Mr Peguero is a 29-year-old male with past medical history of anxiety on Prozac presented to the ED on 07/19 with abdominal pain, fevers and diarrhea for 1 day will be admittied for sepsis secondary to acute colitis. GI consulted for possible colonoscopy and IBD work up. CT abdomen showed epiploic appendagitis and mild colitis with mild thickening of the urinary bladder wall. Plan: Started antibiotics ciprofloxacin and Flagyl, Golytely bowel prep for colonoscopy. Will follow up GI recommendations. CLD added. Please refer to the note above for further details. - Guerrero Duckworth MD, PGY 2 Disclaimer: The document may contain phonetic/typographic errors due to voice recognition software. These errors are purely due to imperfections in the software program and should not be misconstrued in any way to compromise the substance of the patient's medical care during this visit. L
[2024-07-19] MEDS: RINGERS LACTATED 1000 ML 1,000 ML 75 ML IV (08:35)
[2024-07-19] MEDS: CIPROFLOXACIN/D5w 400 MG IVPB 400 MG/200 ML BAG 200 MG IV ×2 (08:35→21:15)
[2024-07-19] MEDS: metroNIDAZOLE/NS 500 MG IVPB 500 MG/100 ML BAG 100 MG IV (08:36)
[2024-07-19] MEDS: ACETAMINOPHEN 325 MG TABLET 650 MG PO ×2 (08:41→15:27)
[2024-07-19 09:29] LABS: Stool for WBCs 2+ (Negative)
[2024-07-19] MEDS: NA SU/NAHCO3/KC/PEG (Golytely) 4,000 ML BTL 4000 ML PO (09:54)
[2024-07-19 10:44] LABS: Clostridium Difficile PCR Negative (Negative)
--- NOTE | 2024-07-19 12:25 | PC.NURSE ---
PT UP TO BR AT THIS TIME. AMBULATORY W/STEADY GAIT.
[2024-07-19] MEDS: metroNIDAZOLE/NS 500 MG IVPB 500 MG/100 ML BAG 200 MG IV ×2 (14:37→20:40)
[2024-07-19] MEDS: HEPARIN SOD INJ 5000 UNIT/ML VIAL SC ×2 (14:37→21:15)
--- NOTE | 2024-07-19 18:32 | PD.IMCONS ---
HPI Data of Consult Requesting Physician: Tiffanie Mendez MD Primary Care Provider: Chris Bagley MD Consult Narrative Reason for consult: Nausea diarrhea pain abdomen fever History of present illness: 29 years old male presented to the emergency room with nausea profuse diarrhea abdominal pain and fever for the last 5 days At least 5-7 bowel movements a day loose and watery Patient did not see any blood in the stool He has no history of any recent travel He also has nausea Patient has been taking ibuprofen for fever which did not break CT scan of the abdomen pelvis showed some inflammatory changes in the region of the descending colon otherwise negative Case was discussed with the internal medicine resident team and advised admission After hamlin culturing to also start the patient on ciprofloxacin and metronidazole Strong family history of colon carcinoma both grandfather and father had colon cancer cc:: cc: Tiffanie Mendez MD Review of Systems Review of Systems Systems Reviewed: All systems reviewed, normal except as documented Past Medical History Surgical History OTHER SURGICAL HX: As in the history of present illness Meds Home Medications and Allergies Home Medications ?Medication ?Instructions ?Recorded ?Confirmed ?Type fluoxetine 10 mg tablet 20 mg PO DAILY 07/19/24 07/19/24 History Allergies Allergy/AdvReac Type Severity Reaction Status Date / Time No Known Allergies Allergy Verified 07/19/24 01:03 Exam Vital Signs Temp Pulse Resp BP Pulse Ox O2 Del Method 99.8 F 102 H 22 H 127/75 97 Room Air 07/19/24 16:15 07/19/24 16:15 07/19/24 16:15 07/19/24 16:15 07/19/24 16:15 07/19/24 16:15 Constitutional Comments: Alert oriented Routine Respiratory Exam Comments: Normal to auscultation Routine Abdominal Exam Comments: Soft tender positive bowel sounds Results Labs 07/19/24 01:50 07/19/24 01:50 Labs: Short CBC 07/19/24 Range/Units 01:50 WBC 8.9 (3.8-10.6) Thou/mm3 Hgb 14.9 (13.5-16.0) g/dL Hct 41.8 (41.0-53.0) % Plt Count 281 (140-440) Thou/mm3 BMP 07/19/24 01:50 Sodium 139 Potassium 4.1 Chloride 106 Carbon Dioxide 24.4 BUN 10 Creatinine 1.1 Glucose 121 H Calcium 9.0 Liver Function 07/19/24 Range/Units 01:50 Total Bilirubin 0.4 (0.3-1.2) mg/dL AST 26 (0-34) U/L ALT 34 (10-49) U/L Alkaline Phosphatase 156 H (46-116) U/L Albumin 4.8 (3.5-5.0) gm/dL Urine 07/19/24 Range/Units 02:15 Urine Color Yellow (Lt Yel-Yel) Urine Clarity Turbid A (Clear/Hazy) Urine pH 6.0 (5.0-7.0) Ur Specific [place] 1.033 (1.001-1.035) Urine Protein Trace (Neg - Trace) Urine Glucose (UA) Negative (Negative) Assessment and Plan Additional Assessment & Plan Additional Plan: Clinical presentation consistent with most likely infectious enterocolitis however underlying inflammatory bowel disease or any kind of microscopic colitis is not fully ruled out Suggestions Complete stool panel With stool for culture sensitivity Giardia antigen and C. difficile ANCA antibody Fecal calprotectin CRP Consent obtained for fiberoptic colonoscopy with biopsies with possible therapeutic intervention scheduled for tomorrow Continue ciprofloxacin and metronidazole IV Will follow the patient Thank you very much for the opportunity to participate in the care of this patient
[2024-07-20] VITALS (17 sets, daily range): BP systolic 106–142; BP diastolic 58–98; PULSE 75–100; RESP 13–20; TEMP 36.3–37.6; O2SAT 94–100
[2024-07-20] MEDS: SODIUM CHLORIDE 0.9% 1000 ML 1,000 ML 75 ML IV ×2 (01:35→21:26)
[2024-07-20] MEDS: metroNIDAZOLE/NS 500 MG IVPB 500 MG/100 ML BAG 200 MG IV ×4 (01:39→23:30)
[2024-07-20 02:34] LABS: OBS Card Lot # 23001; OBS Developer Lot # 23003; OBS Performed By gundc2; OBS QC OK? Yes; Occult Blood, Stool Negative (Negative)
[2024-07-20] MEDS: HEPARIN SOD INJ 5000 UNIT/ML VIAL SC ×2 (05:13→21:26)
[2024-07-20 05:21] LABS: Basophils % (Auto) 0 % (0-2.5); Eosinophils % (Auto) 0 % (0-10); Hematocrit 39.7 % (41.0-53.0); Immature Granulocytes % (Auto) 0 % (0-0); Immature Granulocytes Auto 0.03 Thou/mm3 (0.00-0.00); Lymphocytes # (Auto) 1.2 Thou/mm3 (1.0-4.8); Lymphocytes % (Auto) 14 % (10-50); Mean Corpuscular HGB Conc 35.3 g/dl (31.0-37.0); Mean Corpuscular Hemoglobin 28.5 pg (25.0-35.0); Mean Corpuscular Volume 81 fL (80-100); Monocytes # (Auto) 0.6 Thou/mm3 (0.0-0.8); Monocytes % (Auto) 7 % (0-12); Neutrophils # (Auto) 6.5 Thou/mm3 (1.8-7.7); Neutrophils % (Auto) 78 % (37-80); Nucleated Red Blood Cell % 0 /100 WBC (0); Platelet Count 254 Thou/mm3 (140-440); RDW Standard Deviation 38.5 fL (35.1-43.9); Red Blood Count 4.91 Miln/mm3 (4.50-5.90); White Blood Count 8.3 Thou/mm3 (3.8-10.6)
[2024-07-20 05:50] LABS: Anion Gap 10 (7-16); BUN/Creatinine Ratio 11 Ratio (12-20); Blood Urea Nitrogen 11 mg/dL (9-23); C-Reactive Protein 19.2 mg/dL (0.0-0.9); Calcium 8.6 mg/dL (8.3-10.6); Carbon Dioxide 25.9 mMol/L (20.0-31.0); Chloride 104 mMol/L (98-107); Estimated Creatinine Clearance 142.9 mL/min (>60); Glucose 107 mg/dL (74-106); Osmolality,Calculated 278 (275-295); Phosphorous 2.1 mg/dL (2.4-5.1); Potassium 3.9 mMol/L (3.4-5.1); Sodium 140 mMol/L (136-145); eGFR > 60 See Note
[2024-07-20 06:25] LABS: Sed Rate (ESR) 27 mm/hr (0-15)
[2024-07-20] MEDS: NAPH,KPH MBDB 1 PACKET (1.5 GM) PO (08:15)
[2024-07-20] MEDS: ACETAMINOPHEN 325 MG TABLET 650 MG PO ×2 (08:28→14:32)
[2024-07-20] MEDS: CIPROFLOXACIN/D5w 400 MG IVPB 400 MG/200 ML BAG 200 MG IV ×2 (09:09→23:29)
--- NOTE | 2024-07-20 11:17 | PC.SS ---
Update: Patient is alert/oriented. Patient is homeless and states he was living on the streets. He was not at a long term. Patient has swollen legs and was admitted for sepsis. Patient states he has no family/friends. He hasn't spoken to his mother in a few years. His other contact Kathie, is . Patient states he was not ambulatory and uses a wheelchair. However, when patient was picked up he states they did not take his wheelchair. Patient has a history of drug use. 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 Patient verbalized he has a hx: depression. No PCP. SS will need to follow up on further d/c planning needs. SS will need to look at a long term. Patient not receiving any income. No PCP No Alt medical decision maker Transportation: [facility] d/c plan: long term vs sNF
--- NOTE | 2024-07-20 11:26 | PC.SS ---
Patient is alert/oriented. Patient was able to verify demographics. Patient was admitted for enterocolitis. 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 Patient is independent with ADL's. Patient has no income. Patient is pending a colonoscopy. PCP: Dr. Bagley, [facility]. Last appt. was . Pharmacy: [facility]. Patient to d/c back home. Patient states his mother, April, is his alt medical decision maker. D/c plan is to return home. d/c plan: home transportation: family alt medical decision maker: mother
--- NOTE | 2024-07-20 13:32 | ESPR_ITS ---
<Statement entered by Tiffanie Mendez MD - 07/29/24 14:59> I reviewed above note and agree with findings and plans. I have also personally examined the patient with medicine team and went over assessment and plan with medical team including international guest coordinator and resident physician. Documentation for date of: 07/20/24 Subjective Subjective Interval history: 07/20/2024: No acute events to report. Patient seen and examined in hospital bed reporting improvement in presenting symptoms; moreover, denies having any concerning cardiac symptoms at this time such as chest pain, shortness of breath, palpitations or any dizziness. Patient has tentatively scheduled colonoscopy for 07/20. Will continue to monitor and expect discharge within next 24 hours. Exam Vital Signs Temp Pulse Resp BP Pulse Ox O2 Del Method 99.7 F 92 18 127/75 96 Room Air 07/20/24 11:29 07/20/24 11:29 07/20/24 11:29 07/20/24 11:29 07/20/24 11:29 07/20/24 11:29 Narrative Exam Physical Exam: GENERAL: Awake, answering questions appropriately, appears stated age, obese HEENT: NC/AT. Moist mucosa. PERRLA/EOMI. CARDIO: Heart RRR, no obvious murmurs, no JVD. PULM: No coughing or visible SOB. Lungs CTA B/L. GI: Abdomen soft, obese, mildly tender to palpation diffusely, no rebound/guarding noted. Borborygmi apparent SKIN/MSK/EXT: No wounds/discoloration/rashes/edema/amputations noted. +Pedal pulses present B/L. NEURO: Oriented x3, Moves extremities x4, no focal neurological deficits Objective Labs 07/20/24 04:30 07/20/24 04:30 Labs: Laboratory Results - last 24 hr 07/20/24 07/20/24 01:00 04:30 WBC 8.3 RBC 4.91 Hgb 14.0 Hct 39.7 L MCV 81 MCH 28.5 MCHC 35.3 RDW Std Deviation 38.5 Plt Count 254 Neut % (Auto) 78 Lymph % (Auto) 14 [place] % (Auto) 7 Eos % (Auto) 0 Baso % (Auto) 0 Neut # (Auto) 6.5 Lymph # (Auto) 1.2 [place]ver # (Auto) 0.6 Eos # (Auto) 0.0 Baso # (Auto) 0.0 Immature Gran # (Auto) 0.03 H Absolute Nucleated RBC 0.00 Immature Gran % 0 Nucleated RBC % 0 ESR 27 H Sodium 140 Potassium 3.9 Chloride 104 Carbon Dioxide 25.9 Anion Gap 10 BUN 11 Creatinine 1.0 Estim Creat Clear Calc 142.9 eGFR > 60 BUN/Creatinine Ratio 11 L Glucose 107 H Calculated Osmolality 278 Calcium 8.6 Phosphorus 2.1 L Magnesium 2.0 C-Reactive Prot, Quant 19.2 H Stool Occult Blood Negative Quality Measures Quality Measures none Assessment & Plan Assessment Current Active Medications: Generic Name Dose Route Start Last Admin Trade Name Freq PRN Reason Stop Dose Admin Acetaminophen 650 mg 07/19/24 08:09 07/20/24 08:28 Acetaminophen 325 Mg Tablet PO 08/18/24 08:08 650 mg Q6H PRN Administration Pain 1-3 and/or Fever >100.1 Hydrocodone Bitart/Acetaminophen 1 tab 07/19/24 08:09 Hydrocodone/Apap 5/325 Tablet PO 07/24/24 08:08 Q4HR PRN PAIN SCALE 4-6 (Moderate Hydrocodone Bitart/Acetaminophen 1 tab 07/19/24 08:14 Hydrocodone/Apap 10/325 Tab PO 07/24/24 08:13 Q4HR PRN PAIN SCALE 7-10 (Severe Heparin Sodium (Porcine) 5,000 unit 07/19/24 14:00 07/20/24 05:13 Heparin Sod Inj 5000 Unit/Ml Vial SC 08/02/24 13:59 5,000 unit Q8HR GERARDO Administration Sodium Chloride 1,000 mls @ 75 mls/hr 07/19/24 07:13 07/20/24 01:35 Ns IV 08/18/24 07:12 75 mls/hr .[id number] GERARDO Administration Ciprofloxacin/Dextrose 400 mg in 200 mls @ 200 mls/hr 07/19/24 21:00 07/20/24 09:09 Cipro Ivpb IV 07/26/24 20:59 200 mls/hr Q12HR GERARDO Administration Metronidazole 500 mg in 100 mls @ 200 mls/hr 07/19/24 14:00 07/20/24 08:15 Flagyl 500 Mg Iv IV 07/26/24 13:59 200 mls/hr Q6H GERARDO Administration Ondansetron HCl 4 mg 07/19/24 08:09 Ondansetron Inj 2 Mg/Ml Inj 2 Ml IV 08/18/24 08:08 Q6H PRN NAUSEA OR VOMITING Protocol Plan 29-year-old male with past medical history of anxiety on Prozac presented to the ED on 07/19 with abdominal pain, fevers and diarrhea for 1 day will be admittied for GI consultation for colitis with colonoscopy and workup for IBS. #Colitis, unspecified #Tachycardia #Febrile illness As stated above, patient presented with 1 day of fever, abdominal pain and diarrhea Patient has family history of colorectal cancer but colonoscopy 1 year ago was negative other than internal hemorrhoids On examination, patient has fever with tachycardia likely secondary to volume depletion from diarrhea Patient also has diffuse abdominal tenderness without signs of peritonitis such as tense abdomen, rebound tenderness or guarding and borborygmi is apparent EKG sinus tachycardia without ST changes, CT shows epiploic appendagitis and mild colitis with mild thickening of the urinary bladder wall In the ED, patient given ibuprofen, Tylenol and initially met sepsis criteria and was given IV fluid resuscitation with antibiotics ciprofloxacin and Flagyl GI was consulted and is asking for bowel prep for colonoscopy Plan: Continue IV antibiotics GI consulted appreciate recommendations Clear liquid diet Stool studies ordered, follow-up on results #Epiploic appendagitis Incidentally found on CT abdomen pelvis Not likely clinically significant Plan: Patient on IV antibiotics as above for coverage #Anxiety Patient has longstanding history of anxiety started on Prozac, used to be on 40 mg about 6 months ago but has been tapering down and is currently on 20 mg daily Plan: Pending official med rec will restart home medication when appropriate Hospital Management: Lines: PIV Diet: Clear liquid Bowel: GoLytely GI prophylaxis: Not needed at this time DVT prophylaxis: Heparin subcu Dispo: Following on stool studies and colonoscopy Code: Full Patient seen and assessed with attending Dr. Vanessa Archer, PGY-1
[2024-07-20] MEDS: NA SU/NAHCO3/KC/PEG (Golytely) 4,000 ML BTL 4000 ML PO (15:19)
--- NOTE | 2024-07-20 16:32 | PC.NURSE ---
CALLED DR. TRUJILLO AND NOTIFIED HIM PATIENT IS NOT CLEAR FOR ENDOSCOPY. STARTED PATIENT ON GOLYTELY AGAIN. PATIENT IS ON HIS SECOND BOTTLE WILL CONTINUE TO MONITOR.
--- NOTE | 2024-07-20 19:25 | PC.NURSE ---
Informed EGD transporter to inform Dr Hester that pt was clear; last oral intake was around 1845. Pt requesting to be informed if procedure will take place tonight or tomorrow, being how he was determined clear for procedure so late in the evening. Will f/u with EGD shortly to inform pt.
--- NOTE | 2024-07-20 22:32 | SUR.PHASEI ---
2232 Patient arrived to recovery resting comfortably in [facility], on oxygen 3L via nasal cannula, breathing unlabored, vital signs stable, denies pain and nausea, report received from Zara URFF
--- NOTE | 2024-07-20 23:09 | SUR.PHASEI ---
2890 Report given to Abel RUFF, patient meets discharge criteria from recovery, awake and alert, breathing unlabored, vital signs stable, denies pain and nausea, patient drinking water; tolerating well
[2024-07-21] VITALS: BP 127/69; PULSE 87; RESP 18; TEMP 36.3; O2SAT 97
[2024-07-21 04:00] VITALS: BP 123/63; PULSE 80; RESP 18; TEMP 36.5; O2SAT 99
[2024-07-21] MEDS: HEPARIN SOD INJ 5000 UNIT/ML VIAL SC (05:35)
[2024-07-21] MEDS: metroNIDAZOLE/NS 500 MG IVPB 500 MG/100 ML BAG 200 MG IV (05:40)
[2024-07-21 05:43] LABS: Basophils % (Auto) 0 % (0-2.5); Eosinophils # (Auto) 0.1 Thou/mm3 (0.0-0.5); Eosinophils % (Auto) 2 % (0-10); Hematocrit 39.9 % (41.0-53.0); Hemoglobin 13.8 g/dL (13.5-16.0); Immature Granulocytes % (Auto) 0 % (0-0); Immature Granulocytes Auto 0.02 Thou/mm3 (0.00-0.00); Lymphocytes # (Auto) 1.6 Thou/mm3 (1.0-4.8); Lymphocytes % (Auto) 31 % (10-50); Mean Corpuscular HGB Conc 34.6 g/dl (31.0-37.0); Mean Corpuscular Volume 84 fL (80-100); Monocytes # (Auto) 0.7 Thou/mm3 (0.0-0.8); Monocytes % (Auto) 13 % (0-12); Neutrophils # (Auto) 2.8 Thou/mm3 (1.8-7.7); Neutrophils % (Auto) 54 % (37-80); Nucleated Red Blood Cell % 0 /100 WBC (0); Platelet Count 252 Thou/mm3 (140-440); RDW Standard Deviation 38.8 fL (35.1-43.9); Red Blood Count 4.76 Miln/mm3 (4.50-5.90); White Blood Count 5.2 Thou/mm3 (3.8-10.6)
[2024-07-21 06:12] LABS: Anion Gap 11 (7-16); BUN/Creatinine Ratio 10 Ratio (12-20); Blood Urea Nitrogen 9 mg/dL (9-23); Carbon Dioxide 24.1 mMol/L (20.0-31.0); Chloride 103 mMol/L (98-107); Creatinine (Component) 0.9 mg/dL (0.6-1.3); Estimated Creatinine Clearance 158.8 mL/min (>60); Glucose 95 mg/dL (74-106); Osmolality,Calculated 274 (275-295); Potassium 3.6 mMol/L (3.4-5.1); Sodium 138 mMol/L (136-145); eGFR > 60 See Note
[2024-07-21 08:00] VITALS: BP 102/67; PULSE 74; RESP 16; TEMP 36.2; O2SAT 98
[2024-07-21] MEDS: CIPROFLOXACIN/D5w 400 MG IVPB 400 MG/200 ML BAG 200 MG IV (08:10)
--- NOTE | 2024-07-21 10:25 | ESDS_ITS ---
<Statement entered by Tiffanie Mendez MD - 07/29/24 15:00> I reviewed above note and agree with findings and plans. I have also personally examined the patient with medicine team and went over assessment and plan with medical team including marketing pr intern and resident physician. Planned Discharge Date 07/21/24 DS: Providers Provider Date of admission: 07/19/24 08:23 Primary care physician: Chris Bagley MD Admitting Provider: Tiffanie Mendez MD Attending Provider on Admission: Tiffanie Mendez MD Consults: 07/19/24 07:13 Consult to Gastroenterology Stat Comment: Consulting Provider: Ang Hester Attending Provider on DC: Vasquez Archer MD Discharging Provider: Vasquez Archer MD DS: Diagnosis Problem List Completed Was Problem List Reviewed/Reconciled?: Yes Hospital Course Hospital Course Hospital course: 29-year-old male with past medical history of anxiety on Prozac presented to the ED on 07/19 with abdominal pain, fever and diarrhea for 1 day. In the ED, patient presented normotensive, tachycardic, increased respiratory rate, febrile 101.4 ?F but saturating 95 on room air. Pertinent findings included chest x-ray which showed no active disease, EKG with sinus tachycardia without ST changes, CT abdomen pelvis which showed epiploic appendagitis adjacent to the descending colon, mild colitis and mild thickening of the anterior urinary bladder. Patient was admitted for GI consultation for colitis and colonoscopy for workup of IBS. Patient was started on IV antibiotics and on 07/20 completed colonoscopy with GI which showed hemorrhoids on perianal exam, erythematous mucosa in the ascending colon, sigmoid colon and rectum and around ileocecal valve. These areas were biopsied and will need to follow-up. Patient symptomatically improved and will be discharged with the following strict instructions. Please complete antibiotic regimen for enterocolitis Take Ciprofloxacin 500mg by mouth twice a day for 2 additional days Take Metronidazole 500mg by mouth twice a day for 2 additional days Continue all other home medications Please follow-up with your PCP within 1-2 weeks and ask them to go over results regarding biopsies taken during colonoscopy Also, ask your PCP to follow-up with stool study results (Calprotectin, Giardia, H.pylori and Norovirus) If your symptoms worsen or if you develop new chest pain, shortness of breath, severe abdominal pain, bloody stools/vomiting - please come back to the ED immediately. Hospital Diagnosis: #Colitis, unspecified #Tachycardia #Febrile illness #Epiploic appendagitis #Anxiety Vasquez Archer, PGY-1 Status at Discharge Overall status at discharge: patient is progressing back to baseline Time Spent with Patient Time attestation: Total time spent providing and/or coordinating discharge services: 45 minutes Time spent: Greater than 30 minutes Exam Vital Signs Temp Pulse Resp BP Pulse Ox O2 Del Method O2 Flow Rate 97.1 F 74 16 102/67 98 Room Air 3 07/21/24 08:00 07/21/24 08:00 07/21/24 08:00 07/21/24 08:00 07/21/24 08:00 07/21/24 08:00 07/20/24 22:47 Narrative Exam Physical Exam: GENERAL: Awake, answering questions appropriately, appears stated age, obese HEENT: NC/AT. Moist mucosa. PERRLA/EOMI. CARDIO: Heart RRR, no obvious murmurs, no JVD. PULM: No coughing or visible SOB. Lungs CTA B/L. GI: Abdomen soft, obese, nontender, no rebound/guarding noted. Borborygmi apparent SKIN/MSK/EXT: No wounds/discoloration/rashes/edema/amputations noted. +Pedal pulses present B/L. NEURO: Oriented x3, Moves extremities x4, no focal neurological deficits Discharge Plan Plan Patient Disposition: HOME (Self Care) Patient condition on transfer: Stable Care Plan Goals: Please complete antibiotic regimen for enterocolitis Take Ciprofloxacin 500mg by mouth twice a day for 2 additional days Take Metronidazole 500mg by mouth twice a day for 2 additional days Continue all other home medications Please follow-up with your PCP within 1-2 weeks and ask them to go over results regarding biopsies taken during colonoscopy Also, ask your PCP to follow-up with stool study results (Calprotectin, Giardia, H.pylori and Norovirus) If your symptoms worsen or if you develop new chest pain, shortness of breath, severe abdominal pain, bloody stools/vomiting - please come back to the ED immediately. Prescriptions/Referrals Prescriptions/Med Rec: New ciprofloxacin HCl 500 mg tablet 500 mg PO Q12H 2 Days Qty: 4 0RF metronidazole 500 mg tablet 500 mg PO BID 2 Days Qty: 4 0RF Continued fluoxetine 10 mg tablet 20 mg PO DAILY Patient Comments: patient takes in the daily in the morning Discontinued doxycycline hyclate 100 mg capsule 100 mg PO BID Qty: 14 0RF cephalexin 500 mg capsule 500 mg PO Q12H Qty: 20 0RF amoxicillin-pot clavulanate 875-125 mg tablet 1 tab PO BID Qty: 14 0RF Referrals: Chris Bagley MD [Primary Care Provider] - Ang Hester MD [Physician] - Patient/Caregiver Discharge Instructions Other Discharge Diet Instructions: Foods to Include: Refined Grains: White bread, white rice, refined pasta, and cereals. Cooked Vegetables: Well-cooked vegetables without skins or seeds, such as carrots, beets, and green beans. Fruits: Fruits without peels or seeds, like peeled apples, bananas, and cantaloupe. Lean Meats and Fish: Poultry, fish, and lean cuts of meat. Eggs: Soft, baked, boiled, or hard-boiled eggs. Dairy (if tolerated): Milk, yogurt, and some cheeses in moderation. Juices: Strained fruit and vegetable juices without pulp or seeds. Broths: Clear broths or strained vegetable broths. Foods to Avoid: High-Fiber Foods: Raw fruits and vegetables, whole grains, nuts, seeds, legumes, and beans. Certain Vegetables: Cabbage, broccoli, cauliflower, and other strongly flavored vegetables. Foods with Skins and Seeds: Avoid fruits and vegetables with skins, seeds, or nuts. Tough Meats: Avoid meats that are tough and fibrous. Lactose-Containing Products: If lactose intolerant, avoid milk products and use lactose-free alternatives. Education Materials: Understanding Colitis Print Language: Cameroonian Stand Alone Forms: Shamika Award Info., Patient Portal Info Letter, Work/Release Restrictions Discharge Order Discharge Orders: Discharge (Routine); Ordered 07/21/24 Ordered By: Vasquez Archer Quality Discharge Quality Measures VTE prophylaxis
--- NOTE | 2024-07-21 23:03 | ESPR_ITS ---
Documentation for date of: 07/21/24 Subjective Subjective Interval history: Late entry for the note Case discussed with internal medicine team Hemoglobin hematocrit stable Colonoscopy showed mild erythema biopsies are pending Okay to discharge the patient to be followed by the PCP biopsy report will be forwarded to the PCP Exam Vital Signs Temp Pulse Resp BP Pulse Ox O2 Del Method O2 Flow Rate 97.1 F 74 16 102/67 98 Room Air 3 07/21/24 08:00 07/21/24 08:00 07/21/24 08:00 07/21/24 08:00 07/21/24 08:00 07/21/24 08:00 07/20/24 22:47 Objective Labs 07/21/24 05:04 07/21/24 05:04 Labs: Laboratory Results - last 24 hr 07/21/24 05:04 WBC 5.2 RBC 4.76 Hgb 13.8 Hct 39.9 L MCV 84 MCH 29.0 MCHC 34.6 RDW Std Deviation 38.8 Plt Count 252 Neut % (Auto) 54 Lymph % (Auto) 31 Esmeralda % (Auto) 13 H Eos % (Auto) 2 Baso % (Auto) 0 Neut # (Auto) 2.8 Lymph # (Auto) 1.6 Esmeralda # (Auto) 0.7 Eos # (Auto) 0.1 Baso # (Auto) 0.0 Immature Gran # (Auto) 0.02 H Absolute Nucleated RBC 0.00 Immature Gran % 0 Nucleated RBC % 0 Sodium 138 Potassium 3.6 Chloride 103 Carbon Dioxide 24.1 Anion Gap 11 BUN 9 Creatinine 0.9 Estim Creat Clear Calc 158.8 eGFR > 60 BUN/Creatinine Ratio 10 L Glucose 95 Calculated Osmolality 274 L Calcium 9.0 Impressions Impression: Diarrhea with colonoscopy findings showing only mild erythema biopsies pending Okay to discharge patient to be followed by the PCP Assessment & Plan A&P Narrative Clinical presentation consistent with most likely infectious enterocolitis however underlying inflammatory bowel disease or any kind of microscopic colitis is not fully ruled out Suggestions Complete stool panel With stool for culture sensitivity Giardia antigen and C. difficile ANCA antibody Fecal calprotectin CRP Consent obtained for fiberoptic colonoscopy with biopsies with possible therapeutic intervention scheduled for tomorrow Continue ciprofloxacin and metronidazole IV Will follow the patient Thank you very much for the opportunity to participate in the care of this patient Time Spent With Patient Time: Total time spent is greater than 50% in coordination of care (as documented) at patient's floor/unit and/or counseling patient:
[2024-07-26 06:59] LABS: Giardia Result NOT DETECTED; Norovirus, EIA (Stool)* NOT DETECTED
[2024-07-26 07:02] LABS: Calprotectin, Stool* 215 mcg/g; Helicobacter pylori Ag, Stool* DETECTED (NOT DETECTED)
[2024-08-01 07:09] LABS: ANCA Screen NEGATIVE (NEGATIVE)
[2024-08-01 07:10] LABS: Myeloperoxidase Ab <1.0 AI (<1.0); Proteinase-3 Ab <1.0 AI (<1.0)
== END 2024-07-21 11:47 | disposition home or self-care (01) ==
LOC: SERX 07:50 → SERHOLD 08:24 → S3SX 13:51
PROVIDERS: Physician Assistant; Specialist; Student in an Organized Health Care Education/Training Program; Admitting Provider Internal Medicine; Emergency Provider Emergency Medicine; PCP Student in an Organized Health Care Education/Training Program; Visit Provider Internal Medicine
PROC: 0DJD8ZZ Inspection of Lower Intestinal Tract, Via Natural or Artificial Opening Endoscopic (ICD-10-PCS; CPT 45378; principal; 2024-07-20 20:00)
DX: K52.9 Noninfective gastroenteritis and colitis, unspecified (principal); K63.89 Other specified diseases of intestine; K62.89 Other specified diseases of anus and rectum; K64.9 Unspecified hemorrhoids; Z01.810 Encounter for preprocedural cardiovascular examination; K65.9 Peritonitis, unspecified; F41.9 Anxiety disorder, unspecified
CPT/HCPCS: 45380; 36415; 71045; 74177; 80048; 80053; 81001; 82270; 83605; 83690; 83735; 83993; 84100; 84145; 85025; 85652; 86021; 86036; 86140; 87015; 87040; 87045; 87046; 87077; 87086; 87205; 87329; 87338; 87400; 87449; 87493; 87811; 87899; 93005; 96361; 96365; 96366; 96367; 96368; 96372; 99285; A4649; G0378; J0696; J0744; J1200; J1644; J2250; J3010; J3490; J7030; J7120; Q9967; A9270; J1836